=== PATIENT | male | born 2000 | race Two or more races ===

== ENCOUNTER 2022-01-23 19:09 | Emergency (ER) | payer BC, MEDICAID ==
[~2022-01-23] VITALS: Ht 170.2 cm; Wt 76.4 kg
[2022-01-23 19:48] VITALS: BP 117/69
[2022-01-23 20:08] LABS: Urine Bacteria NONE SEEN /hpf (None Seen); Urine Blood Negative /uL (Negative); Urine Hyaline Cast MOD /lpf (0 - 2); Urine Mucus FEW (None Seen); Urine Specific Gravity 1.031 (1.001-1.035); Urine WBC 1 /hpf (0 - 3)
== END 2022-01-23 21:24 | disposition home or self-care (01) ==
LOC: ER 19:09
DX: R10.9 Unspecified abdominal pain (principal); R11.2 Nausea with vomiting, unspecified
CPT/HCPCS: 74176; 81001